=== PATIENT | female | born 1960 | race African-American/Black ===

== ENCOUNTER 2018-12-19 10:55 | Emergency (ER) | payer MEDICAID ==
[~2018-12-19] VITALS: Ht 162.6 cm; Wt 76.0 kg
[2018-12-19 11:49] LABS: BASOPHILS % 1.2 % (0.0-2.0); EOSINOPHILS % 4.2 % (0.0-5.0); HEMATOCRIT. 41.7 % (36.0-48.0); HEMOGLOBIN. 13.3 g/dL (12.0-16.0); LYMPHOCYTES % 44.4 % (20.0-50.0); MEAN CORPUSCULAR HEMOGLOBIN 22.8 pg (28.0-32.0); MEAN CORPUSCULAR VOLUME 71.2 fL (81.0-99.0); MEAN PLATELET VOLUME 8.2 fl (7.4-10.4); MONOCYTES % 5.9 % (2.0-8.0); NEUTROPHILS % 44.3 % (40.0-76.0); PLATELET 299 x1000/uL (130-400); RED BLOOD CELL COUNT 5.85 mill/uL (4.2-5.4); RED CELL DISTRIBUTION WIDTH 15.9 % (11.6-14.6)
[2018-12-19 11:56] LABS: CHLORIDE 105 mEq/L (98-107)
[2018-12-19 11:59] LABS: *AMPHETAMINES SCREEN URINE NEGATIVE (NEGATIVE); *BARBITURATES SCREEN URINE NEGATIVE (NEGATIVE); *BENZODIAZEPINES SCREEN URINE NEGATIVE (NEGATIVE); *COCAINE SCREEN URINE NEGATIVE (NEGATIVE)
[2018-12-19 12:00] LABS: CANNABINOID URINE SCREEN NEGATIVE (NEGATIVE); OPIATES URINE SCREEN NEGATIVE (NEGATIVE); PHENCYCLIDINE URINE SCREEN NEGATIVE (NEGATIVE)
[2018-12-19 12:00] LABS: ETHANOL BLOOD < 10 mg/dL
[2018-12-19 12:02] LABS: METHADONE URINE SCREEN NEGATIVE (NEGATIVE)
[2018-12-19] MEDS ORDERED: ONDANSETRON HCL 4MG/2ML INJ IV ONE (12:30)
[2018-12-19] MEDS ORDERED: SODIUM CHLORIDE 0.9% 1,000 ML IV ONE (13:45)
[2018-12-19] MEDS ORDERED: ACETAMINOPHEN 325MG TABLET PO ONE (14:15)
[2018-12-19] MEDS ORDERED: METFORMIN HCL 500MG TABLET PO NR (14:30)
[2018-12-19 15:05] VITALS: BP 144/79
== END 2018-12-19 15:08 | disposition home or self-care (01) ==
LOC: ER 11:12
DX: R53.1 Weakness (principal); R11.2 Nausea with vomiting, unspecified; E11.9 Type 2 diabetes mellitus without complications; I10 Essential (primary) hypertension
CPT/HCPCS: 36415; 70450; 71045; 80053; 80305; 80320; 82962; 83690; 83880; 84484; 85025; 93005; 96361; 96374; 99284; J2405; Z7610; G0480